=== PATIENT | female | born 1995 | race Caucasian/White ===

== ENCOUNTER 2017-08-29 13:45 | Emergency (ER) | payer OTHER ==
--- NOTE | 2017-08-29 14:49 | CPEKG ---
Heart Rate: 58 RR Interval: 1034 P-R Interval: 108 QRSD Interval: 86 QT Interval: 392 QTC Interval: 386 P Doyline: 44 QRS Doyline: 68 T Wave Doyline: 40 EKG Severity - BORDERLINE ECG - EKG Impression: SINUS ARRHYTHMIA, RATE 52-68 EKG Impression: SHORT TN INTERVAL, ACCELERATED AV CONDUCTION EKG Impression: Agree with above Electronically Signed By: Thong Velez 30-Aug-2017 10:42:06
--- NOTE | 2017-08-29 15:22 | EDPHY ---
H & P Stated Complaint: FAINTED, HIT HEAD - Personal History LMP (Females 10-55): Now Current Tetanus Diphtheria and Acellular Pertussis (TDAP): Yes - Medical/Surgical History Other PMH: PREVIOUS EPISODES OF FAINTING - Social History Smoking Status: Never smoked Time Seen by Provider: 08/29/17 15:07 HPI/ROS: CHIEF COMPLAINT: "I fainted" HISTORY OF PRESENT ILLNESS: 22-year-old female arrives via private vehicle. Patient states that earlier this morning she was sitting on the toilet talking to friend, started feel lightheaded, had a syncopal episode which was witnessed by her friend. May have impacted her head. No headache. No signs of trauma. No laceration. No seizure-like activity according to friend. No incontinence to stool or urine. No oral trauma. She currently states that she is feeling well and is asymptomatic. She denies recent illness. Denies recent illicit drug use. She did eat breakfast prior this incident. No antecedent headache or chest pain. Notes that she has had similar episodes in the past. She has not had medical evaluation for these. REVIEW OF SYSTEMS: A ten point review of systems was performed and is negative with the exception of the items mentioned in the HPI PAST MEDICAL & SURGICAL HISTORY: No pertinent medical or surgical history SOCIAL HISTORY:no recent cocaine use. No recent alcohol use. PHYSICAL EXAM (Prior to examination, patient consented to physical exam, hands were washed and my usual and customary physical exam procedures followed) 1) GENERAL: Well-developed, well-nourished, alert and oriented. Appears to be in no acute distress. Smiling, laughing appears well 2) HEAD: Normocephalic, atraumatic 3) HEENT: Pupils equal, round, reactive to light bilaterally. Sclera anicteric. Nasopharynx, oropharynx, clear, no lesions. Symmetrical faces. Ears bilaterally with normal tympanic membranes. 4) NECK: Full range of motion, no meningeal signs. 5) LUNGS: Clear auscultation bilaterally, no wheezes, no rhonchi, no retractions. 6) HEART: Regular rate and rhythm, no murmur, no heave, no gallop. 7) ABDOMEN: No guarding, no rebound, no focal tenderness, negative McBurney's, negative Mcnamara's, negative Rovsing's, negative peritoneal sign, 8) MUSCULOSKELETAL: Moving all extremities, no focal areas of tenderness, no obvious trauma. No peripheral edema or discoloration. 9) BACK: No CVA tenderness, no midline vertebral tenderness, no fluctuance, no step-off, no obvious trauma, no visual or palpable abnormality. 10) SKIN: No rash, no petechiae. 11) Psychiatric: Patient is oriented X 3, there is no agitation. 12) NEURO: Awake, alert, and oriented to person, place and time. Answers questions appropriately. There were no obvious focal neurologic abnormalities. No cerebellar dysfunction. Cranial nerves 2 through to 12 intact. Normal steady gait. Upper and lower extremities bilaterally with strength 5 / 5, reflexes 2+. DIFFERENTIAL DIAGNOSIS: In no particular order including but not limited to CVA , ectopic , cardiac dysrhythmia , seizure (Nikki Ac) Constitutional: Initial Vital Signs Temperature (C) 36.8 C 08/29/17 13:53 Heart Rate 78 08/29/17 13:53 Respiratory Rate 16 08/29/17 13:53 Blood Pressure 117/74 08/29/17 13:53 O2 Sat (%) 98 08/29/17 13:53 O2 Delivery Mode Room Air Allergies/Adverse Reactions: amoxicillin Allergy (Verified 08/29/17 13:51) Home Medications: Medication Instructions Recorded Acne Treatment 08/29/17 Control 08/29/17 Medical Decision Making ED Course/Re-evaluation: 3:19 p.m.: After evaluating the patient, she currently appears well, has a nonfocal neurologic exam. Recommended obtaining serum blood studies. Noting a fear of needles patient declines any blood work or IV. She has been informed therefore of the limitations of my evaluation. I believe the patient to have decision-making capacity. EKG shows normal sinus rhythm. Urine test will be obtained. If this is negative plan will be discharge home with follow- up information with PCP, Cardiology. At this time I do not think that imaging of the brain is currently indicated she is asymptomatic. We discussed multiple possible etiologies for syncope. She feels comfortable being discharged Care of patient under supervision of secondary supervising physician Dr Pennie Payne 3:35 p.m.: Emergency department test is negative. (Osorio,D Diane) Other Provider: The patient was evaluated and managed by the Physician Corporate Planning Manager. My co- signature indicates that I have reviewed this chart and I agree with the findings and plan of care as documented. I am the secondary supervising physician. (Pennie Payne) Departure - Departure Disposition: Home, Routine, Self-Care Clinical Impression: Syncope and collapse Condition: Good Instructions: Syncope (ED) Additional Instructions: If you develop another passing out episode please seek immediate medical attention. Referrals: Didier Cabrera MD [Medical Doctor] - 1-2 days without fail (Dr. Cabrera is a chute boss) Leti Acosta MD [Medical Doctor] - 1-2 days without fail (Dr. Acosta is a primary care provider)
[2017-08-29 15:54] VITALS: BP 95/65
== END 2017-08-29 15:54 | disposition home or self-care (01) ==
DX: R55 Syncope and collapse (principal)